=== PATIENT | male | born 2000 | race Two or more races ===

== ENCOUNTER 2024-08-05 16:19 | Emergency (ER) | payer OTHER ==
[~2024-08-05] VITALS: Ht 182.9 cm; Wt 77.0 kg
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
[2024-08-05] MEDS ORDERED: IBUP1TAB5 PO (18:37)
[2024-08-05 19:46] VITALS: BP 133/71; TEMP 98.2
[2024-08-05 19:55] VITALS: PULSE 77; RESP 17; O2SAT 100
== END 2024-08-05 19:56 | disposition home or self-care (01) ==
LOC: ER 16:19 → EDBD 16:19 → ER 19:56
DX: S16.1XXA Strain of muscle, fascia and tendon at neck level, initial encounter (principal); R55 Syncope and collapse; V43.52XA Car driver injured in collision with other type car in traffic accident, initial encounter; Y93.89 Activity, other specified; Y92.410 Unspecified street and highway as the place of occurrence of the external cause; Y99.8 Other external cause status
CPT/HCPCS: 70450; 72125